=== PATIENT | male | born 1975 | race Caucasian/White ===

== ENCOUNTER 2019-12-16 23:18 | Emergency (ER) | payer BC ==
[~2019-12-16] VITALS: Ht 182.9 cm; Wt 77.6 kg
[2019-12-16 23:18] VITALS: BP 132/84
--- NOTE | 2019-12-17 10:51 | REP ---
Right wrist series: Four views. History: Injury in a fall. Findings: Four views of the right wrist demonstrate overall normal mineralization. There is mild soft tissue swelling dorsally over the carpus. No visible fracture or subluxation is seen. Impression: No fracture noted. Electronically Signed by Braden Art MD 12/17/2019 08:05 A
--- NOTE | 2019-12-17 10:51 | REP ---
Right forearm: Two views. History: Injury in a fall. Findings: AP and lateral views of the right forearm show no evidence of fracture or subluxation. Elbow and wrist articulations are normally aligned. Impression: No fracture seen. Electronically Signed by Braden Art MD 12/17/2019 08:06 A
== END 2019-12-17 00:42 | disposition home or self-care (01) ==
LOC: M ED 23:18
DX: S63.501A Unspecified sprain of right wrist, initial encounter (principal); W01.0XXA Fall on same level from slipping, tripping and stumbling without subsequent striking against object, initial encounter; Y92.39 Other specified sports and athletic area as the place of occurrence of the external cause; Y93.23 Activity, snow (alpine) (downhill) skiing, snowboarding, sledding, tobogganing and snow tubing; Y99.9 Unspecified external cause status; Z88.0 Allergy status to penicillin